=== PATIENT | male | born 1985 | race Caucasian/White ===

== ENCOUNTER → 2020-07-15 07:54 | Outpatient (CLI) | payer BC, SELFPAY ==
--- NOTE | ~2020-07-15 | MR_ITS ---
EXAMINATION: MR shoulder LT wo con DATE: 07/15/2020 08:29 INDICATION: Left rotator cuff tendon strain presenting with chronic intermittent left shoulder pain a fter yard work. TECHNIQUE: Magnetic resonance imaging (MRI) of the left shoulder was performed without intravenous co ntrast. Sequences included axial PD-weighted FS FSE, coronal oblique PD-weighted FS FSE, coronal obli que T2-weighted FS FSE, sagittal PD-weighted FS FSE, and sagittal T1-weighted SE. COMPARISON: None. FINDINGS: Coracoacromial arch: The acromion undersurface is curved in morphology (type II). The coracoacromial ligament is normal. A cromioclavicular joint is normal. Rotator cuff: Minimal infraspinatus tendinopathy but with tiny partial-thickness tear measuring 3 mm AP along the a rticular side of the central aspect of the middle facet footplate which involves less than one third of the tendon thickness. There is mild thickening consistent with tendinopathy without discrete tear of the anterior most supraspinatus tendon along its confluence with the lateral aspect of the biceps neli sling which also appears mildly thickened. The teres minor and subscapularis tendons are norm al. Normal rotator cuff muscle bulk and signal. Biceps tendon, glenoid labrum and glenohumeral cartilage: Long head of the biceps tendon is normal. Glenoid labrum is normal. Glenohumeral cartilage is normal. Fluid: Physiologic amount of fluid in the glenohumeral joint and biceps tendon sheath. No loose osteochondra l bodies. No abnormal fluid signal in the subacromial/subdeltoid bursa to suggest bursitis. Bones: Normal marrow signal. No fracture or pathologic marrow replacing process. IMPRESSION: 1. Mild supraspinatus and minimal infraspinatus tendinopathy with tiny mild partial-thickness tear at the middle facet footplate of the distal infraspinatus tendon, unclear whether articular sided or in trasubstance. Reviewed, dictated and finalized at location B. IMPRESSION: 1. Mild supraspinatus and minimal infraspinatus tendinopathy with tiny mild par tial-thickness tear at the middle facet footplate of the distal infraspinatus t endon, unclear whether articular sided or intrasubstance.
== END ==
PROVIDERS: PCP Internal Medicine; Visit Provider Internal Medicine
DX: S46.012A Strain of muscle(s) and tendon(s) of the rotator cuff of left shoulder, initial encounter (principal); S49.92XA Unspecified injury of left shoulder and upper arm, initial encounter; X58.XXXA Exposure to other specified factors, initial encounter
CPT/HCPCS: 73221

== ENCOUNTER → 2020-08-02 00:26 | Outpatient (CLI) | payer BC, SELFPAY ==
[2020-08-02 20:46] LABS: SARS-CoV-2 RNA PCR Negative
== END ==
PROVIDERS: PCP Internal Medicine; Visit Provider Internal Medicine Gastroenterology
DX: Z01.812 Encounter for preprocedural laboratory examination (principal); Z20.822 Contact with and (suspected) exposure to COVID-19
CPT/HCPCS: C9803; U0003; U0005

== ENCOUNTER 2020-08-05 01:33 | Day surgery (SDC) | payer BC, SELFPAY ==
[2020-07-22 13:21] VITALS: BMI 29.3
[2020-08-05 08:36] VITALS: BP 138/93; PULSE 74; RESP 20; TEMP 36.2; O2SAT 99
[2020-08-05] MEDS: LACTATED RINGERS 1,000 ML 150 ML IV CONT (08:40)
--- NOTE | 2020-08-05 09:28 | P.HP_ITS ---
History of Present Illness History of Present Illness Consent: Risks, benefits, and alternatives have been discussed and questions answered. Patient agrees to proceed with procedure. Chief complaint: rectal pain, proctalgia fugax Narrative: Leonides Whiting is a 35 year old male with a change in bowel habits. He has irregular bowel movements. Sometimes he will have a bowel movement in the middle the night preceded by a great deal of discomfort in the rectal area. Review of Systems Review of Systems: All systems reviewed & are unremarkable except as noted in HPI and below [facility] Past Medical History Medical History Overweight (BMI 25.0-29.9) Family History Family History Grandparent Family history of cardiovascular disease Family history of dementia Social History Social History Smoking status: Never smoker Second hand tobacco smoke exposure: No Alcohol intake: current Alcohol use details: occas Substance use: never Substance use type: does not use Living arrangements: with family Gender identity (if verbalized by the patient): Male Meds Home Medications and Allergies Home Medications Medication Instructions Recorded Confirmed Type multivitamin 1 tablet PO DAILY 07/01/20 08/05/20 History Allergies Allergy/AdvReac Type Severity Reaction Status Date / Time No Known Allergies Allergy Verified 08/05/20 08:34 Vital Signs Vital Signs - 24 hr 08/05/20 08:36 Temperature 36.2 C L Pulse Rate 74 Respiratory Rate 20 Blood Pressure 138/93 H Pulse Oximetry 99 Exam Resp: Auscultation: clear to auscultation bilaterally Cardio: Rate: regular rate Rhythm: regular rhythm GI: GI Palp: Yes Soft to palpation and No Tenderness to palpation present (GI) Assessment and Plan Assessment and plan (1) Change in bowel habits: Code(s): R19.4 - Change in bowel habit Status: Acute Assessment and Plan: Colonoscopy with possible biopsy or polypectomy or cautery or injection of substances.
--- NOTE | 2020-08-05 09:34 | WPDANESEPPF ---
Anes - Initial Pre Proc Eval Procedure: Operation Date: 08/05/20 10:00 Proposed Procedures p Colonoscopy - Quang Gutierrez MD Date/Time: 08/05/20 09:34 Surgeon: Quang Gutierrez MD Pre Op Diagnosis: rectal pain, proctalgia fugax Patient Data Age: 35 Gender: M Height: 5 ft 11 in Weight: 93.3 kg Last Vital Signs Temp 97.2 F L 08/05/20 08:36 Pulse 74 08/05/20 08:36 Resp 20 08/05/20 08:36 BP 138/93 H 08/05/20 08:36 Pulse Ox 99 08/05/20 08:36 Allergies Allergy/AdvReac Type Severity Reaction Status Date / Time No Known Allergies Allergy Verified 08/05/20 08:34 Home Medications Medication Instructions Recorded Confirmed Type multivitamin 1 tablet PO DAILY 07/01/20 08/05/20 History Patient hx anesthesia problems: none Family hx anesthesia problems: none PMFSH Past Medical History Medical History (Updated 08/05/20 @ 09:33 by Rich Mahmood MD) Hyperlipidemia diet controlled Overweight (BMI 25.0-29.9) Family History Family History Grandparent Family history of cardiovascular disease Family history of dementia Social History Social History Smoking status: Never smoker Second hand tobacco smoke exposure: No Alcohol intake: current Alcohol use details: occas Substance use: never Substance use type: does not use Living arrangements: with family Gender identity (if verbalized by the patient): Male Anes - Eval Final PreProcedure Day of Procedure 08/05/20 09:34 Patient weight: normal Heart: regular rate and rhythm Lungs: clear to auscultation Airway: Mallampati scale class II Neurological: alert and oriented Last oral intake: >/= 8 hours ASA classification: II Emergent: no Anesthetic plan: proceed Anesthesia type and monitoring: general GIVS and standard monitoring Informed Consent: The patient's anesthetic plan and its attendant risks and benefits were discussed with the patient/family/POA. Questions were solicited and answers provided to the satisfaction of the patient/family/POA.
[2020-08-05 09:58] VITALS: BP 109/73; PULSE 58; RESP 17; O2SAT 97
[2020-08-05 10:08] VITALS: BP 117/76; PULSE 59; RESP 22; O2SAT 100
[2020-08-05 10:18] VITALS: BP 111/82; PULSE 66; RESP 21; O2SAT 97
== END 2020-08-05 10:29 | disposition home or self-care (01) ==
PROVIDERS: PCP Internal Medicine; Visit Provider Internal Medicine Gastroenterology
PROC: 0DJD8ZZ Inspection of Lower Intestinal Tract, Via Natural or Artificial Opening Endoscopic (ICD-10-PCS; CPT 45378; principal; 2020-08-05 10:00)
DX: R19.4 Change in bowel habit (principal); K57.30 Diverticulosis of large intestine without perforation or abscess without bleeding; K62.89 Other specified diseases of anus and rectum; E78.5 Hyperlipidemia, unspecified
CPT/HCPCS: 45378; J2704; J7120

== ENCOUNTER 2020-11-01 08:52 | Emergency (ER) | payer BC, SELFPAY ==
[2020-11-01 09:00] VITALS: BP 146/103; PULSE 96; RESP 16; TEMP 37.2; O2SAT 97
[2020-11-01 09:29] LABS: Basophils Absolute Auto 0.1 K/mm3 (0.0-0.1); Basophils Percent Auto 0.5 % (0.2-1.2); Eosinophils Percent Auto 0.2 % (0-4.4); Hematocrit 50.3 % (42.0-52.0); Hemoglobin 16.9 g/dL (14.0-18.0); Immature Granulocyte Absolute 0.04 K/mm3 (0.00-0.031); Immature Granulocyte Percent A 0.4 % (0-0.5); Lymphocytes Absolute Auto 1.49 K/mm3 (0.9-3.2); Lymphocytes Percent Auto 13.4 % (18.3-44.2); Mean Corpuscular HGB Conc 33.6 g/dl (32-36); Mean Corpuscular Hemoglobin 29.7 pg (26-34); Mean Corpuscular Volume 88.4 fl (80-100); Mean Platelet Volume 10.7 fl (7.4-10.4); Monocytes Absolute Auto 0.7 K/mm3 (0.1-0.6); Monocytes Percent Auto 6.6 % (2.6-8.5); Neutrophils Absolute Auto 8.8 K/mm3 (1.3-6.7); Neutrophils Percent Auto 78.9 % (45.5-73.1); Platelet Count Result 234 k/mm3 (150-375); Red Blood Count 5.69 M/mm3 (4.6-6.20); White Blood Count 11.1 K/mm3 (4.5-10.0)
[2020-11-01 09:33] LABS: Add Urine Microscopic? YES; Appearance Urine Clear (Clear); Bilirubin Urine Negative (Negative); Blood Urine Negative (Negative); Color Urine Yellow (Yellow); Glucose Urine UA Negative (Negative); Ketones Urine Trace mg/dL (Negative); Leukocyte Esterase Ur Negative LEU/UL (Negative); Mucus Urine Rare /lpf; Nitrate Urine Negative (Negative); Protein Urine Negative (Negative); Specific Grav Ur 1.006 (1.001-1.035); Urobilinogen Urine Negative mg/dL (<2.0)
[2020-11-01 09:43] LABS: Alanine Aminotransferase 41 U/L (4-50); Alkaline Phosphatase 70 U/L (38-126); Anion Gap 12 mmol/L (8-16); Aspartate Amino Transferase 37 U/L (17-59); Bilirubin,Total 1.1 mg/dL (0.2-1.3); Blood Urea Nitrogen 14 mg/dL (9-20); Calcium 10.2 mg/dL (8.4-10.2); Carbon Dioxide 27 mmol/L (22-30); Chloride 99 mmol/L (98-107); Estimated CRCL calculation 96 ml/min; Estimated Glomerular Filt Rate > 60; Glucose 109 mg/dL (65-110); Sodium 138 mmol/L (137-145)
[2020-11-01 09:57] LABS: Ethanol < 10 mg/dL (<10)
[2020-11-01] MEDS: LORazepam (*CRX) 1 MG TABLET PO (10:06)
[2020-11-01 10:20] VITALS: BP 136/93; PULSE 98; RESP 18; TEMP 36.5; O2SAT 98
[2020-11-01 10:23] LABS: Amphetamine Screen Urine Negative (Negative); Barbiturate Screen Urine Negative (Negative); Benzodiazepines Screen Urine Negative (Negative); Cannabinoid Screen Urine Negative (Negative); Cocaine Screen Urine Negative (Negative); Methadone Screen Urine Negative (Negative); Opiate Screen Urine Negative (Negative); Phencyclidine Screen Urine Negative (Negative)
[2020-11-01 10:40] LABS: EDCOVIDSCREEN Negative (Negative)
--- NOTE | 2020-11-01 11:53 | ED.GENADULT ---
HPI - General Adult General Chief complaint: Psychiatric Symptoms Stated complaint: Psych Time Seen by Provider: 11/01/20 09:09 Source: patient, EMS and RN notes reviewed Mode of arrival: EMS Limitations: no limitations History of Present Illness HPI narrative: Patient is a 35-year-old male who presents to emergency department for evaluation of having made the statements of cutting his wrists patient reportedly found out that his is having an affair with the neighbor . Patient had found some illicit photos and videos that they were exchanging confronted his this morning who notes that she had sexual relations with a neighbor he then confronted the neighbor. Patient being upset with the 2 noted that he felt very upset over the issue and threatened to cut his while conversing with the 2 of them to display his upset nature about what it unfolded. Patient notes that his only friend in this area is the neighbor who had an affair with his . Patient denies any self-harm. Patient lives at home with his and his 2 young children. Patient is a [id number] father and cares for his 2 children. Patient on arrival denying any suicidal homicidal ideation or any history of psychiatric past or any thoughts of harming himself or attempt to hurt himself in the past or others. Patient on arrival is cooperative Related Data Home Medications Medication Instructions Recorded Confirmed No Home Medications 11/01/20 11/01/20 Allergies Allergy/AdvReac Type Severity Reaction Status Date / Time No Known Allergies Allergy Verified 11/01/20 09:31 Review of Systems Review of Systems: All systems reviewed & are unremarkable except as noted in HPI and below PMFSH Past Medical History Medical History Hyperlipidemia diet controlled Overweight (BMI 25.0-29.9) Family History Family History Grandparent Family history of cardiovascular disease Family history of dementia Social History Social History Smoking status: Never smoker Second hand tobacco smoke exposure: No Alcohol intake: current Alcohol use details: occas Substance use: never Substance use type: marijuana Gender identity (if verbalized by the patient): Male Exam Narrative: Exam Narrative: GENERAL: Well-appearing, well-nourished, and in no acute distress. HEAD: Normocephalic, atraumatic. EYES: PERRLA and EOMI. ENT: Nares clear, no rhinorrhea or epistaxis. Mucous membranes moist. CHEST: Clear to auscultation. No respiratory distress. No wheezes rales or rhonchi HEART: Regular rate and rhythm. No murmur heard. EXTREMITIES: Normal range of motion. No edema. SKIN: Warm, dry, no rash. NEURO: No focal deficits. Alert and oriented x3. Cranial nerves II through XII grossly intact PSYCH: Normal mood and affect. Course Course Emergency Course: Patient evaluated by myself and crisis felt appropriate for discharge home will follow with crisis tomorrow as well as primary care feels comfortable to go home is felt safe for discharge home signed a safety contract will be advised to return if symptoms worsen and agrees with this treatment plan patient has been cooperative during his stay Reevaluation(s) Reevaluation #1: Crisis evaluating the patient at this time schedule was made with crisis the plan will likely be to send the patient home with a safety contract with follow-up with crisis patient's mother is flying in from out of town to come stay with her son during this. Date: 11/01/20 Time: 11:57 Vital Signs Vital signs: Vital Signs Temperature 98.9 F 11/01/20 09:00 Pulse Rate 96 11/01/20 09:00 Respiratory Rate 16 11/01/20 09:00 Blood Pressure 146/103 H 11/01/20 09:00 Pulse Oximetry 97 11/01/20 09:00 Temperature 97.7 F 11/01/20 10:20 Pulse Rate 98
[2020-11-01 13:04] VITALS: BP 138/90; PULSE 97; RESP 18; O2SAT 98
== END 2020-11-01 13:05 | disposition home or self-care (01) ==
PROVIDERS: Emergency Provider Emergency Medicine; PCP Internal Medicine
DX: F32.9 Major depressive disorder, single episode, unspecified (principal)
CPT/HCPCS: 36415; 80053; 80307; 81001; 84443; 85025; 87426; 99284; A9270; C9803

== ENCOUNTER 2021-06-22 09:29 | Outpatient (CLI) | payer BC, SELFPAY ==
--- NOTE | ~2021-06-22 | XR_ITS ---
EXAMINATION: XR small bowel follow through DATE: 06/22/2021 10:57 INDICATION: Abdominal pain. TECHNIQUE: Oral contrast was administered, and a time course of radiographs of the abdomen was obtain ed. Fluoroscopy of the small bowel was performed. Fluoroscopy exposure time was 0.6 minutes. The tota l number of images was 244. COMPARISON: None. FINDINGS: There are staple lines in left abdomen. Surgical clips in the pelvis may be from inguinal hernia repa irs. There are no dilated loops of bowel. There is no mass or stricture. There are diverticula of the proximal small bowel. The terminal ileum is normal. Transit time from the stomach to proximal colon was approximately 45 minutes. IMPRESSION: 1. Proximal small bowel diverticulosis. Reviewed, dictated and finalized at location A.
== END 2021-06-22 09:30 | disposition home or self-care (01) ==
LOC: ANHIMG 09:32
PROVIDERS: PCP Internal Medicine; Visit Provider Nurse Practitioner Family
DX: R93.89 Abnormal findings on diagnostic imaging of other specified body structures (principal); K57.30 Diverticulosis of large intestine without perforation or abscess without bleeding
CPT/HCPCS: 74250